=== PATIENT | male | born 1965 | race Caucasian/White ===

== ENCOUNTER 2019-10-12 22:34 | Emergency (ER) | payer OTHER ==
[~2019-10-12] VITALS: Ht 180.3 cm; Wt 73.5 kg
[2019-10-12] MEDS ORDERED: ALBUTEROL SULFATE 2.5 MG/3 ML NEBU. NEB PRN (23:15)
[2019-10-12] MEDS ORDERED: IPRATRPIUM/ALBUTEROL 0.5/2.5MG 3 ML NEBU. NEB PRN (23:15)
[2019-10-12] MEDS ORDERED: ASPIRIN 81 MG TAB.CHEW PO ONE (23:15)
--- NOTE | 2019-10-12 23:19 | RAD ---
Exam: CT head and cervical spine without contrast INDICATION: Fall, head injury left side TECHNIQUE: Sequential axial images through the head and cervical spine were obtained without the administration of IV contrast. Comparisons: None FINDINGS: Head: No focal parenchymal lesion or hemorrhage is identified. There is no midline shift or sulcal effacement. 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 Likely old lacunar infarct at the left basal ganglia. No acute vascular territory infarction is identified. Ceron-white distinction is preserved. The ventricular system is within normal limits without compression hydrocephalus. The basal cisterns are well maintained. Extra cranial soft tissue contusion in the scalp overlying the right frontal region. Mucous retention cyst is noted within the left maxillary sinus.. No acute fractures. Cervical spine: Vertebral body heights are well-maintained. Straightening of the cervical spine which may be positional. Fracture to the cervical spine is not identified. Multilevel spondylotic change in cervical spine with diffuse degenerative disc disease greatest at C3-C4. Mild bilateral facet arthropathy is also noted in the cervical spine. Visualized paraspinal soft tissues are unremarkable. IMPRESSION: 1. Extra cranial soft tissue scalp contusion in the right frontal region without underlying osseous or intracranial abnormality. 2. Chronic appearing infarcts as described above. 3. Negative CT C-spine for acute traumatic injury. Exposure: One or more of the following in the visualized dose reduction techniques were utilized for this examination: 1. Automated exposure control 2. Adjustment of the MA and/or KV according to patient size Use of iterative of reconstructive technique Electronically signed by: Tello Gr MD (10/12/2019 11:16 PM) [id number]
[2019-10-13 00:19] LABS: CALCIUM 8.6 mg/dL (8.5-10.1); CREATININE 1.1 mg/dL (0.7-1.3); GFR 69.5
[2019-10-13 00:25] LABS: ALBUMIN 3.8 g/dL (3.4-5.0); ALBUMIN/GLOBULIN RATIO 1.3 (1.0-1.7); TOTAL BILIRUBIN 0.7 mg/dL (0.2-1.0); TOTAL PROTEIN 6.7 g/dL (6.4-8.2)
[2019-10-13 00:28] LABS: HEMATOCRIT 38.7 % (39.0-53.0); RED BLOOD COUNT 4.24 x10^6/uL (4.30-5.70); RED CELL DISTRIBUTION WIDTH 14.6 % (11.5-14.5); WHITE BLOOD COUNT 7.5 x10^3/uL (4.0-11.0)
--- NOTE | 2019-10-13 01:04 | PHYS DOC ---
Past History Past Medical History: Depression, Hypertension, Schizophrenia (ALANA CARRINGTON DO) Past Surgical History: No Surgical History (ALANA CARRINGTON DO) Alcohol Use: None (ALANA CARRINGTON DO) Adult General Chief Complaint Chief Complaint: MULTIPLE COMPLAINTS HPI HPI 53 year old male found running the streets naked. Patient brought into ER for evaluation. Patient head a head contusion and abraision left facial. On exam patient is alert and oriented x 4. Patient has no complaints. (ALANA CARRINGTON DO) Review of Systems Review of Systems Constitutional: Denies fever or chills [] Eyes: Denies change in visual acuity, redness, or eye pain [] HENT: Denies nasal congestion or sore throat [] Respiratory: Denies cough or shortness of breath [] Cardiovascular: No additional information not addressed in HPI [] GI: Denies abdominal pain, nausea, vomiting, bloody stools or diarrhea [] : Denies dysuria or hematuria [] Musculoskeletal: Denies back pain or joint pain [] Integument: positive abrasion left facial Neurologic: Denies headache, focal weakness or sensory changes [] Endocrine: Denies polyuria or polydipsia [] All other systems were reviewed and found to be within normal limits, except as documented in this note. (ALANA CARRINGTON DO) Current Medications Current Medications Current Medications Medications (Trade) Dose Ordered Sig/Gloria Start Time Stop Time Status Last Admin Dose Admin Albuterol Sulfate (Ventolin) 2.5 mg Q4HRS PRN 10/12/19 23:15 10/12/19 23:57 DC Albuterol/ Ipratropium (Duoneb) 3 ml Q4HRS PRN 10/12/19 23:15 10/12/19 23:57 DC Aspirin (Children'S Aspirin) 324 mg 1X ONCE 10/12/19 23:15 10/13/19 00:09 DC (ALANA CARRINGTON DO) Allergies Allergies Allergies Coded Allergies Type Severity Reaction Last Updated Verified Unable to Assess 10/12/19 No (ALANA CARRINGTON DO) Physical Exam Physical Exam Constitutional: Well developed, well nourished, no acute distress, non-toxic appearance. [] HENT: Normocephalic, bilateral external ears normal, oropharynx moist, no oral exudates, nose normal. [] Eyes: PERRLA, EOMI, conjunctiva normal, no discharge. [] Neck: Normal range of motion, no tenderness, supple, no stridor. [] Cardiovascular:Heart rate regular rhythm, no murmur [] Lungs & Thorax: Bilateral breath sounds clear to auscultation [] Abdomen: Bowel sounds normal, soft, no tenderness, no masses, no pulsatile masses. [] Skin: abrasion left facial Back: No tenderness, no CVA tenderness. [] Extremities: No tenderness, no cyanosis, no clubbing, ROM intact, no edema. [] Neurologic: Alert and oriented X 3, normal motor function, normal sensory function, no focal deficits noted. [] Psychologic: Affect normal, judgement normal, mood normal. [] (ALANA CARRINGTON DO) Current Patient Data Vital Signs Vital Signs Date Time Temp Pulse Resp B/P (MAP) Pulse Ox O2 Delivery O2 Flow Rate FiO2 10/12/19 22:35 97.6 76 22 189/116 (140) 98 Room Air Lab Results Laboratory Tests Test 10/12/19 23:55 White Blood Count 7.5 x10^3/uL (4.0-11.0) Red Blood Count 4.24 x10^6/uL (4.30-5.70) L Hemoglobin 13.0 g/dL (13.0-17.5) Hematocrit 38.7 % (39.0-53.0) L Mean Corpuscular Volume 91 fL (79-100) Mean Corpuscular Hemoglobin 31 pg (25-35) Mean Corpuscular Hemoglobin Concent 34 g/dL (31-37) Red Cell Distribution Width 14.6 % (11.5-14.5) H Platelet Count 247 x10^3/uL (140-400) Sodium Level 140 mmol/L (136-145) Potassium Level 4.0 mmol/L (3.5-5.1) Chloride Level 102 mmol/L (98-107) Carbon Dioxide Level 29 mmol/L (21-32) Anion Gap 9 (6-14) Blood Urea Nitrogen 28 mg/dL (8-26) H Creatinine 1.1 mg/dL (0.7-1.3) Estimated GFR (Cockcroft-Gault) 69.5 BUN/Creatinine Ratio 25 (6-20) H Glucose Level 105 mg/dL (70-99) H Calcium Level 8.6 mg/dL (8.5-10.1) Total Bilirubin 0.7 mg/dL (0.2-1.0) Aspartate Amino Transferase (AST) 27 U/L (15-37) Alanine Aminotransferase (ALT) 21 U/L (16-63) Alkaline Phosphatase 61 U/L (46-116) Total Protein 6.7 g/dL (6.4-8.2) Albumin 3.8 g/dL (3.4-5.0) Albumin/Globulin Ratio 1.3 (1.0-1.7) Ethyl Alcohol Level < 10 mg/dL (0-10) (ALANA CARRINGTON DO) EKG EKG [] (ALANA CARRINGTON DO) Radiology/Procedures Radiology/Procedures [] (ALANA CARRINGTON DO) Course & Med Decision Making Course & Med Decision Making Pertinent Labs and Imaging studies reviewed. (See chart for details) []Patient was evaluated for chief complaint. CT head and labs negative. Patient a/ox4. 0000hrs Re-evaluation-- Patient up walking around-- shuffling gait. Patient states that he is evil. Patient states he doesn't like people who are happy. Patient denies HI or SI. Patient easily re-directable. Wounds cleaned. Td Uptadte. Patient evaluated by mental health-- placement recommended. 0600hrs-- patient signed out to Dr Sury Harvey pending placement. (ALANA CARRINGTON DO) Course & Med Decision Making Patient received from prior ER physician and patient had been evaluated by mental health and plan was to place in [facility] as voluntary; however, due to [facility] being on quarantine, they could not accept additional patients. Patient was therefore being held for voluntary placement. No facilities available at this time and for foreseeable future. Patient elected that he wanted to be discharged home where his father lives. Friend was contacted and will pick patient up and transport patient back home. (SURY HARVEY Jr. DO) Dragon Disclaimer Dragon Disclaimer This electronic medical record was generated, in whole or in part, using a voice recognition dictation system. (ALANA CARRINGTON DO) Departure Departure: Impression: Primary Impression: Fall Additional Impressions: Facial contusion Psychosis Disposition: 01 HOME, SELF-CARE Condition: STABLE Referrals: EDWARDO AGUILAR MD (PCP) Patient Instructions: Facial or Scalp Contusion, Fall Prevention and Home Safety, Psychosis Problem Qualifiers ALANA CARRINGTON I DO Oct 13, 2019 01:04 SURY HARVEY Jr. DO Oct 13, 2019 10:52
[2019-10-13 02:02] LABS: BARBITURATES NEG (NEG); BENZODIAZEPINES NEG (NEG); CANNABINOIDS NEG (NEG); COCAINE NEG (NEG); METHADONE NEG (NEG); OPIATES NEG (NEG); PHENCYCLIDINE NEG (NEG)
[2019-10-13] MEDS ORDERED: NEOMY/BACITR/POLYMYXIN OINT PACKET. TP ONE (02:06)
[2019-10-13 02:13] LABS: AMPHETAMINE/METHAMPHETAMINE NEG (NEG)
[2019-10-13] MEDS ORDERED: DIPH,PERTUSS(ACELL),TET VAC/PF 0.5 ML SYRINGE. VAX IM ONE (02:15)
[2019-10-13] MEDS ORDERED: OLAN5TAB9 PO (06:37)
[2019-10-13] MEDS ORDERED: ROPI1TAB4 PO (06:42)
[2019-10-13] MEDS ORDERED: QUET150T2 PO (06:42)
[2019-10-13] MEDS ORDERED: AMLO5TAB10 PO (06:42)
[2019-10-13] MEDS ORDERED: BENZ2AMP4 IJ (06:42)
[2019-10-13] MEDS ORDERED: DILT120C99 PO (06:42)
[2019-10-13] MEDS ORDERED: ATEN25TA42 PO (06:42)
[2019-10-13] MEDS ORDERED: TRAZ-125 PO (06:42)
[2019-10-13] MEDS ORDERED: BUPR300T92 PO (06:42)
[2019-10-13] MEDS ORDERED: ATENOLOL 25 MG TABLET PO ONE (06:45)
[2019-10-13] MEDS ORDERED: buPROPion XL 300 MG TAB.ER.24H. PO ONE (06:45)
[2019-10-13] MEDS ORDERED: OLANZapine 2.5 MG TABLET PO ONE (06:45)
[2019-10-13] MEDS ORDERED: BENZTROPINE MESYLATE 1 MG TABLET PO ONE (06:45)
[2019-10-13] MEDS ORDERED: amLODIPine BESYLATE 5 MG TABLET PO ONE (06:45)
[2019-10-13 08:43] VITALS: BP 138/86
[2019-10-13] MEDS ORDERED: OLANZapine 7.5 MG TABLET PO ONE (10:30)
== END 2019-10-13 11:40 | disposition home or self-care (01) ==
LOC: ER 22:34
DX: S00.83XA Contusion of other part of head, initial encounter (principal); F29 Unspecified psychosis not due to a substance or known physiological condition; F32.9 Major depressive disorder, single episode, unspecified; I10 Essential (primary) hypertension; F20.9 Schizophrenia, unspecified; W18.39XA Other fall on same level, initial encounter; Y93.89 Activity, other specified; Y92.89 Other specified places as the place of occurrence of the external cause; Y99.8 Other external cause status
CPT/HCPCS: 36415; 70450; 72125; 80053; 80307; 85027; 90471; 90715; 99285; G0480

== ENCOUNTER 2019-10-13 15:11 | Inpatient (IN) | payer OTHER ==
[~2019-10-13] VITALS: Ht 177.8 cm; Wt 68.8 kg
[~2019-10-13 15:11] MED LIST: AMLO5TAB10 PO; ATEN25TA42 PO; BENZ2AMP4 IJ; BUPR300T92 PO; DILT120C99 PO; OLAN5TAB9 PO; QUET150T2 PO; ROPI1TAB4 PO; TRAZ-125 PO
[2019-10-13] MEDS ORDERED: IV NORMAL SALINE 1,000ML 1,000 ML IV ONE (15:45)
--- NOTE | 2019-10-13 16:02 | PHYS DOC ---
Past History Past Medical History: Depression, Hypertension, Schizophrenia (SURY HARVEY Jr. DO) Past Surgical History: No Surgical History (SURY HARVEY Jr., DO) Alcohol Use: None (SURY HARVEY Jr., DO) Adult General Chief Complaint Chief Complaint: MECHANICAL FALL HPI HPI Patient is a 53-year-old male who presents via EMS for report of psychosis. Patient reportedly had been running down the middle of the street completely naked. Upon arrival, patient indicates that he doesn't know why he was running down the street naked. He denies any complaints at this time. Patient was here last night for same complaint and ultimately had been discharged home after receiving is psychiatric medications and having appeared to be improved.[] (SURY HARVEY Jr., DO) Review of Systems Review of Systems Constitutional: Denies fever or chills [] Respiratory: Denies cough or shortness of breath [] Cardiovascular: No additional information not addressed in HPI [] GI: Denies abdominal pain, nausea, vomiting, bloody stools or diarrhea [] Integument: Denies rash or skin lesions [] Neurologic: Denies headache, focal weakness or sensory changes [] All other systems were reviewed and found to be within normal limits, except as documented in this note. (SURY HARVEY Jr., DO) Current Medications Current Medications Current Medications Medications (Trade) Dose Ordered Sig/Gloria Start Time Stop Time Status Last Admin Dose Admin Sodium Chloride 1,000 ml @ 1,000 mls/hr 1X ONCE 10/13/19 15:45 10/13/19 16:44 10/13/19 15:45 1,000 MLS/HR (SURY HARVEY Jr., DO) Allergies Allergies Allergies Coded Allergies Type Severity Reaction Last Updated Verified Unable to Assess 10/12/19 No (SURY HARVEY Jr., DO) Physical Exam Physical Exam Constitutional: Well developed, well nourished, no acute distress, non-toxic appearance. [] HENT: Normocephalic, atraumatic, bilateral external ears normal, oropharynx dry, no oral exudates, nose normal. [] Eyes: PERRLA, EOMI, conjunctiva normal, no discharge. [] Neck: Normal range of motion, no tenderness, supple, no stridor. [] Cardiovascular: Regular rate and rhythm[] Lungs & Thorax: Bilateral breath sounds clear to auscultation [] Abdomen: Bowel sounds normal, soft, no tenderness. [] Skin: Warm, dry, no erythema, no rash. [] Extremities: No tenderness, no cyanosis, no clubbing, ROM intact, no edema. [] Neurologic: Oriented to person and place, no focal deficits noted. [] Psychologic: Very flattened affect. [] (SURY HARVEY Jr., DO) Current Patient Data Vital Signs Vital Signs Date Time Temp Pulse Resp B/P (MAP) Pulse Ox O2 Delivery O2 Flow Rate FiO2 10/13/19 15:21 97.0 58 18 151/85 (107) 99 (SURY HARVEY Jr., DO) EKG EKG [] (SURY HARVEY Jr., DO) Radiology/Procedures Radiology/Procedures [] (SURY HARVEY Jr., DO) Course & Med Decision Making Course & Med Decision Making Pertinent Labs and Imaging studies reviewed. (See chart for details) [] (SURY HARVEY Jr., DO) Course & Med Decision Making Pt. hx prior ED Eval. on 10/12/2019, Return again to night for Eval. for Behavior issue- Pt. admitted to floor on previous shift - Dr. Hodge. Pt. became more agitated at Admission. Order placed for Geodon and Ativan. See Dr. Harvey report for details. Reviewed prior labs- Impression: 1. Schizophrenia- acute exacerbation 2. Out patient treatment failure 3. History of hypertension 4. Social Issues- 5. Head Injury High risk for re-admission if social issues not addressed. - Possible need for [facility] placement or [facility] facility) (GEORGE BAZZI MD) Dragon Disclaimer Dragon Disclaimer This electronic medical record was generated, in whole or in part, using a voice recognition dictation system. (SURY HARVEY Jr., DO) Departure Departure: Impression: Primary Impression: Acute psychosis Disposition: ADMITTED INPATIENT Admitting Physician: Michael Hodge (SURY HARVEY Jr. DO) Condition: IMPROVED Referrals: EDWARDO AGUILAR MD (PCP) Dragon Disclaimer This chart was dictated in whole or in part using Voice Recognition software in a busy, high-work load, and often noisy Emergency Department environment. It may contain unintended and wholly unrecognized errors or omissions. (GEORGE BAZZI MD) Dragon Disclaimer This chart was dictated in whole or in part using Voice Recognition software in a busy, high-work load, and often noisy Emergency Department environment. It may contain unintended and wholly unrecognized errors or omissions. (GEORGE BAZZI MD) Dragon Disclaimer This chart was dictated in whole or in part using Voice Recognition software in a busy, high-work load, and often noisy Emergency Department environment. It may contain unintended and wholly unrecognized errors or omissions. (GEORGE BAZZI MD) SURY HARVEY Jr. DO Oct 13, 2019 16:02 GEORGE BAZZI MD Oct 14, 2019 04:09
[2019-10-13 18:14] LABS: BILIRUBIN,URINE NEG (NEG); CLARITY,URINE CLEAR; COLOR,URINE YELLOW; GLUCOSE,URINE NEG (NEG); NITRITE,URINE NEG (NEG); RBC,URINE OCC /HPF (0-2); UROBILINOGEN,URINE 0.2 mg/dL (0.2 mg/dL)
[2019-10-13 18:15] LABS: BACTERIA,URINE 0 /HPF (0-FEW); SQUAMOUS EPITHELIAL CELL,UR OCC /LPF; WBC,URINE OCC /HPF (0-4)
[2019-10-13] MEDS ORDERED: rOPINIRole 0.5 MG TABLET. ONE (20:36)
[2019-10-13] MEDS ORDERED: QUEtiapine 100 MG TABLET. ONE (20:36)
[2019-10-13] MEDS ORDERED: traZODone 100 MG TABLET. ONE (20:36)
[2019-10-13] MEDS ORDERED: QUEtiapine 50 MG TABLET. ONE ×2 (20:36→21:00)
[2019-10-13] MEDS ORDERED: QUETIAPINE FUMARATE 150 MG PO SCH (21:00)
[2019-10-13] MEDS ORDERED: traZODone 100 MG TABLET. PO SCH (21:00)
[2019-10-13] MEDS ORDERED: rOPINIRole 1 MG TABLET. PO SCH (21:00)
[2019-10-13 23:45] VITALS: BP 117/83
--- NOTE | 2019-10-13 23:45 | NUR ---
The patient, LEA CORRALES, 53 y/o, M admitted by DIA ALVARADO MD, was given written information regarding hospital policies, unit procedures and contact persons. Valuables were checked and logged. Call light at bedside. Will continue to monitor.
--- NOTE | 2019-10-14 00:10 | NUR ---
Pt gets out of bed and screaming repeatedly, "Stop Rishi! Stop it Narayan! Cook you're the devil." Pt reassured that Narayan is not there. He was refusing to take his meds; however he did take his medicine and stayed in bed. Will continue to monitor.
[2019-10-14] MEDS: traZODone 100 MG TABLET. PO SCH ×2 (00:14→20:48)
[2019-10-14] MEDS: rOPINIRole 0.5 MG TABLET. PO SCH ×2 (00:14→20:48)
[2019-10-14] MEDS ORDERED: ZIPRASIDONE IM 20 MG VIAL. IM ONE (00:15)
[2019-10-14] MEDS ORDERED: QUEtiapine 50 MG TABLET. PO ONE (00:15)
[2019-10-14 06:38] VITALS: BP 176/90
[2019-10-14] MEDS: buPROPion XL 300 MG TAB.ER.24H. PO SCH (08:24)
[2019-10-14] MEDS: OLANZapine 5 MG TABLET PO SCH (08:25)
[2019-10-14] MEDS: ATENOLOL 25 MG TABLET PO SCH (08:25)
[2019-10-14] MEDS ORDERED: amLODIPine BESYLATE 5 MG TABLET PO SCH (09:00)
[2019-10-14] MEDS ORDERED: buPROPion XL 300 MG TAB.ER.24H. PO SCH (09:00)
[2019-10-14] MEDS ORDERED: OLANZapine 5 MG TABLET PO SCH (09:00)
[2019-10-14] MEDS ORDERED: ATENOLOL 25 MG TABLET PO SCH (09:00)
--- NOTE | 2019-10-14 09:09 | NUR ---
Patient lethargic this morning. Needed much encouragement to wake up and take medications. Patient compliant with medications and assessment. Patient appears disinterested in breakfast at this time. In none is consumed will encourage to drink ensure. Patient has no further needs or complaints at this time.
[2019-10-14 12:00] VITALS: BP 164/88
--- NOTE | 2019-10-14 12:49 | HP ---
ADMIT DATE: 10/13/2019 HISTORY OF PRESENT ILLNESS: The patient is a 53-year-old male patient is known to have schizophrenia who was found running in the streets naked. He was brought to the Emergency Room for evaluation. Has had head contusion, abrasion on his left face. However, on examination, he was alert, oriented x 4. He offered no complaint. He was evaluated in the Emergency Room and was evaluated by the mental health and the plan [facility]; however, due to [facility] being on quarantine, they could not accept additional patient. The patient was therefore being held for voluntary placement. No facility is available at this time and for foreseeable future. The patient elected that he wanted to be discharged home where his father lives. Friend was contacted and he transported the patient back home and apparently he again was brought to the Emergency Room and therefore, he was brought back, was admitted and was started on his home medications as apparently he has not taken his medication. He was evaluated in the Emergency Room on Tuesday and he has had some lab work as well as imaging studies at that time. PAST MEDICAL HISTORY: Significant for schizophrenia, hypertension, depression. PAST SURGICAL HISTORY: None. FAMILY HISTORY: Apparently, he lives with his father who takes care of him and no further information available for me at this time. The patient was very lethargic when I saw him this morning. SOCIAL HISTORY: Apparently single and does not smoke, drink alcohol or use any recreational drugs. ALLERGIES: He has nothing reported. MEDICATIONS: He is currently on following medications: He is normally on atenolol 25 mg once a day, amlodipine 5 mg once a day, diltiazem 240 mg once a day, Wellbutrin 300 mg daily, trazodone 100 mg once a day, olanzapine 15 mg daily, Seroquel XR 150 mg at bedtime, benztropine mesylate 2 mg twice a day and Requip 0.5 mg at bedtime. PHYSICAL EXAMINATION: GENERAL: On arrival to the Emergency Room, he looked well and was clearly in no apparent respiratory distress. No pallor, jaundice, cyanosis or thyromegaly. No jugular venous distention. No limb edema. VITAL SIGNS: His heart rate was 47, blood pressure was 146/81, temperature was 97.7, respiratory rate 20, and oxygen saturation was 99%. HEAD, EYES, EARS, NOSE AND THROAT: Showed normocephalic. Has abrasion on the left side of the forehead and left side of the face. NECK: Supple. HEART: Normal first and second heart sounds with no gallop, rub or murmur. CHEST: Clear to auscultation. No crepitation or rhonchi. ABDOMEN: Distended, soft, nontender. No guarding or rigidity. No organomegaly. All hernial orifices intact. Bowel sounds normal. NEUROLOGIC: He was oriented to person and place with no obvious focal deficit. LABORATORY DATA: Showed a white cell count 7500, hemoglobin 13, hematocrit 39, MCV 91, and platelet count 247,000. His chemistry showed a serum sodium 140, potassium 4, chloride 102, bicarbonate 29, anion gap of 9, BUN of 28, creatinine 1.1, estimated GFR was 69 mL per minute. His glucose 105, calcium was 8.56. Total bilirubin, AST, ALT, alkaline phosphatase were normal. Total protein was 6.7, albumin was 3.8. Urinalysis essentially unremarkable. Toxic screen was negative. He did have a CT scan of the head and neck, which basically showed that there is no focal parenchymal lesion or hemorrhage identified. There is no midline shift or sulcal effacement. Has chronic appearing infarct of the left cerebellum, likely old lacunar infarct at the left basal ganglia. No acute vascular territory infarction identified. Chilel white distinction is preserved. The ventricular system is within normal limits without compression hydrocephalus. Basal cisterns are well maintained. The extracranial soft tissue contusion in the scalp overlying the right frontal region. Mucous retention cyst is noted within the left maxillary sinus. No acute fracture. Cervical spine showed that the vertebral body heights are well maintained. Straightening of the cervical spine which may be positional fracture of the cervical spine is not identified. Multilevel spondylitic changes in the cervical spine with diffuse degenerative disk disease, greatest at C3-C4, has mild bilateral facet arthropathy is also noted in the cervical spine. ASSESSMENT AND PLAN: The patient was basically admitted awaiting placement initially to ____ other inpatient psychiatric unit. Meanwhile, the patient was continued on his home medications, which includes his quetiapine fumarate 75 mg twice a day, olanzapine 15 mg daily, diltiazem 240 mg daily, Wellbutrin 300 mg once a day, atenolol 25 mg once a day, amlodipine besylate 5 mg once a day, trazodone 100 mg once a day, Requip 0.5 mg at bedtime and lorazepam 2 mg IV every 4 hours. I will discontinue the amlodipine as he is already on diltiazem. DIA ALVARADO MD DR: LISA/jayla JOB#: [id number] / [id number]
--- NOTE | 2019-10-14 14:21 | RAD ---
Right knee AP lateral x-rays 2 views HISTORY: Fall with bruising the right knee and pain. Unsteady gait. FINDINGS: Mild enthesophyte quadriceps tendon insertion upper patella. No fracture. No dislocation. Soft tissues are unremarkable. Arterial vascular calcification. IMPRESSION: No acute osseous injury. Electronically signed by: Piero Dia MD (10/14/2019 2:18 PM) [id number]
--- NOTE | 2019-10-14 15:01 | RAD ---
Right lower extremity venous duplex Doppler ultrasound HISTORY: Right leg swelling. FINDINGS: No DVT evident by grayscale sonography with compressibility, patent color Doppler blood flow and augmentation of blood flow the right common femoral vein, profunda femoral vein, superficial femoral vein and popliteal vein. No DVT with patent color Doppler blood flow the posterior tibial and peroneal veins in the calf. At the right medial lower calf there is a oblong hypoechoic hypoechoic structure without internal blood flow but is adjacent and likely in continuity with a patent vessel. It is possible this is a segment of a thrombosed varicose vein, although the images provided demonstrate a thrombosed saccular structure rather than a complete cylindrical vessel, which also raises the possibility of a thrombosed aneurysm. Additionally it is uncertain if the blood flow leading up to this thrombosed structure is arterial or venous as no spectral waveform was obtained. Follow-up of this may be of benefit. IMPRESSION: Negative right leg for DVT. At the right medial lower calf there is a thrombosed vascular structure as described above. Electronically signed by: Piero Dia MD (10/14/2019 2:58 PM) [id number]
--- NOTE | 2019-10-14 15:07 | NUR ---
Patient linen changed and leigh-care completed. patient urinated the bed.
[2019-10-14 15:26] VITALS: BP 144/84
[2019-10-14 20:00] VITALS: BP 120/75
[2019-10-14] MEDS: QUEtiapine 25 MG TABLET. PO SCH (20:48)
[2019-10-15 04:46] VITALS: BP 148/81
[2019-10-15 06:37] LABS: HEMATOCRIT 40.3 % (39.0-53.0); HEMOGLOBIN 13.5 g/dL (13.0-17.5); RED BLOOD COUNT 4.39 x10^6/uL (4.30-5.70); RED CELL DISTRIBUTION WIDTH 14.6 % (11.5-14.5); WHITE BLOOD COUNT 7.2 x10^3/uL (4.0-11.0)
[2019-10-15 06:52] LABS: ALBUMIN 3.3 g/dL (3.4-5.0); ALBUMIN/GLOBULIN RATIO 1.2 (1.0-1.7); CALCIUM 8.6 mg/dL (8.5-10.1); CREATININE 1.2 mg/dL (0.7-1.3); GFR 62.9; POTASSIUM 3.6 mmol/L (3.5-5.1); TOTAL BILIRUBIN 0.5 mg/dL (0.2-1.0)
[2019-10-15] MEDS: OLANZapine 5 MG TABLET PO SCH (08:34)
[2019-10-15] MEDS: QUEtiapine 25 MG TABLET. PO SCH (08:35)
[2019-10-15] MEDS: ATENOLOL 25 MG TABLET PO SCH (08:35)
[2019-10-15] MEDS: buPROPion XL 300 MG TAB.ER.24H. PO SCH (08:35)
[2019-10-15 10:21] VITALS: BP 102/64
--- NOTE | 2019-10-15 10:36 | NUR ---
Pt is to be transferred to [place], [place]. Now awaiting approval from hospital. Will continue to monitor and assess as necessary.
--- NOTE | 2019-10-15 14:28 | NUR ---
Discharge Note: LEXI CORRALES [facility] Discharge instructions and discharge home medications reviewed with Patient and a copy given. All questions have been answered and understanding verbalized. The following instructions and handouts were given: Report to [facility] unit Discontinued lines and drains: Discontinued peripheral IV , pressure dressing applied, catheter tip intact, no apparant complications Patient transferred to [facility]
--- NOTE | 2019-10-15 14:30 | NUR ---
Pt started yelling stating "Don't take me to surgery!" I'm going to loose my foot!" At this point, pt left room and started running down the hallway. Nursing staff attempted to stop pt. Pt was running, tripped and fell to the ground. Pt did not complain of any pain. No lacerations, skin breakdown, or bruising noted from fall. Pt recovered from fall by standing up un-assisted and ambulated independently back to room. Pt insisted we were taking him to surgery. Nursing staff reassured pt that he was not going to surgery and that we were taking him back to his room. Pt screamed, "Your taking me back to surgery!" Nursing staff successfully were able to bring pt back to room. Pt is now a 1 on 1 observation pt. Will continue to monitor and assess as necessary.
--- NOTE | 2019-10-15 16:43 | PN ---
DATE: SUBJECTIVE: The patient is resting, slightly propped up in bed, in no apparent respiratory distress. He is definitely more awake, alert, responding appropriately. He apparently is aware that he cannot live with his father who is not in good health. Apparently, attempt is for him to be admitted to [facility] in [place]. The patient apparently has been cooperative and compliant with care and medication, although he has been walking around naked in the corridors, has been to the kitchen multiple times and ate his breakfast numerous times according to nursing staff. When I saw him, he looked well. OBJECTIVE: VITAL SIGNS: His heart rate was 87, blood pressure 148/81, temperature 98.1, respiratory rate was 20, and oxygen saturation was 95%. HEAD, EYES, EARS, NOSE AND THROAT: Showed normocephalic. There is some abrasion on the left side of the face and left forehead. NECK: Supple. CARDIAC: Normal first and second heart sounds. No gallop, rub or murmur. CHEST: Clear to auscultation. No crepitation or rhonchi. ABDOMEN: Distended, soft, nontender. NEUROLOGIC: He was definitely more awake, alert, responding appropriately. He moves all extremities without difficulty, ambulates without assistance or assistive devices. His intake and output are incompletely recorded. LABORATORY DATA: His lab work this morning showed a serum sodium 143, potassium 3.6, chloride 106, bicarbonate 29, anion gap of 8, BUN 25, creatinine 1.2, estimated GFR was 63 mL per minute. His glucose was 90, calcium was 8.6. Total bilirubin, AST, ALT, alkaline phosphatase were normal. Total protein 6, albumin was 3.3. His white cell count was 7200, hemoglobin 13.5, hematocrit 40, MCV was 92, and platelet count 206,000. His urinalysis was essentially unremarkable. ASSESSMENT: This is a 53-year-old male patient who is known to have schizophrenia, who was found running in the streets naked. He was actually evaluated in the Emergency Room twice and was admitted for placement. Apparently, the ____ have no place for him and we are waiting for him to be [facility] in [place]. We will obviously discharge him as soon as there is an acceptance facility. DIA ALVARADO MD DR: Giovanni JOB#: [id number] / [id number]
== END 2019-10-15 15:19 | DRG 605 ==
LOC: ER 15:11 → 1 SOUTH 23:39
PROVIDERS: ADMIT Internal Medicine; ATTEND Internal Medicine
DX: S00.93XA Contusion of unspecified part of head, initial encounter (principal); W18.30XA Fall on same level, unspecified, initial encounter; F20.9 Schizophrenia, unspecified; I10 Essential (primary) hypertension; Z79.899 Other long term (current) drug therapy; F32.9 Major depressive disorder, single episode, unspecified; S00.81XA Abrasion of other part of head, initial encounter; W18.39XA Other fall on same level, initial encounter; Y93.89 Activity, other specified; Y92.89 Other specified places as the place of occurrence of the external cause; Y99.8 Other external cause status
CPT/HCPCS: 36415; 73560; 80053; 81001; 82550; 85027; 93971; J2060; J7030